=== PATIENT | male | born 1980 | race Caucasian/White ===

== ENCOUNTER 2016-08-20 13:30 | Emergency (ER) | payer OTHER ==
[~2016-08-20 13:30] MED LIST: AMOXIL500 MG PO; NO MEDICATIONS; ZOFRAN PO
== END 2016-08-20 14:05 | disposition home or self-care (01) ==
LOC: SED 13:30
DX: L23.7 Allergic contact dermatitis due to plants, except food (principal); Z98.890 Other specified postprocedural states
CPT/HCPCS: 99282